=== PATIENT | male | born 1995 | race Caucasian/White ===

== ENCOUNTER 2018-01-18 14:34 | Emergency (ER) | payer OTHER ==
[2018-01-18 14:41] VITALS: BP 131/70; TEMP 97.9
[2018-01-18 16:13] VITALS: PULSE 61
== END 2018-01-18 16:13 | disposition home or self-care (01) ==
LOC: COL.ER 14:34
DX: S39.012A Strain of muscle, fascia and tendon of lower back, initial encounter (principal); W10.9XXA Fall (on) (from) unspecified stairs and steps, initial encounter